=== PATIENT | female | born 2000 | race Caucasian/White ===

== ENCOUNTER 2025-04-12 12:41 | Inpatient (IN) ==
[2025-04-12 14:10] LABS: Protein Creatinine Ratio Urine 0.2 (0-0.2); Total Protein Urine Random 23.0 mg/dl (0-11.9)
[2025-04-12] MEDS: LABETALOL HCL IV 5 MG/ML 20ML IV STA (14:17)
[2025-04-12 14:30] LABS: Hematocrit (blood only) 33.1 % (37.0-47.0); Hemoglobin 11.2 g/dl (12.0-16.0); Immature Granulocytes # (auto) 0.10 K/uL (0.01-0.20); Immature Granulocytes % (auto) 0.8 %; Mean Corpuscular Hemoglobin 30.8 pg (25.0-34.0); Mean Corpuscular Volume 90.9 fL (80.0-100.0); Platelet Count 225 K/uL (130-400); RDW Standard Deviation 44.6 fL (36.4-46.3); Red Blood Count 3.64 M/uL (4.20-5.40); White Blood Count 12.62 K/ul (4.8-10.8)
[2025-04-12] MEDS: LACTATED RINGER'S 1,000 ML IV SCH ×3 (14:30→17:25)
[2025-04-12] MEDS: MAG SULFATE 4GM BOLUS FROM BAG IV ONE (14:32)
[2025-04-12] MEDS: MAGNESIUM SULFATE / WTR 40 GM/1,000 ML BAG IV SCH (14:32)
--- NOTE | 2025-04-12 14:36 | History & Physical Report ---
Date of Service April 12, 2025 Assessment & Plan (1) Chronic hypertension affecting : Plan: Hallie is a 24-year-old G2, P0 101 weeks for gestational age presents with superimposed preeclampsia with severe features due to severe range blood pressures. Labetalol 20 mg ordered for acute antihypertensive treatment. Will start magnesium per protocol. Patient has a prior history of section with plan repeat . Consent forms reviewed and signed and all questions answered. Diagnosis of preeclampsia with severe features discussed and patient has a prior history of preeclampsia with severe features with delivery. All questions answered. Reactive NST noted. Will continue to monitor and treat as indicated. (2) History of pre-eclampsia: (3) Previous delivery affecting , antepartum: (4) Severe pre-eclampsia: Admission and Anticipated Discharge Date Admission Date: April 12, 2025 History of Present Illness Primary Care Provider: NO PCP Hallie is a [id number] P0-1-0-1 currently at 38 weeks 4 days gestational age presents for evaluation of acute hypertension affecting . Was noted to have elevated blood pressures in clinic this morning and was sent for evaluation. Patient was noted to have fairly persistent severe range blood pressures upon admission. Preeclampsia labs currently pending. Patient denying any preeclampsia symptoms. Has a history of preeclampsia affecting her first with delivery at 26 weeks. Prior for preeclampsia with delivery @ 26 weeks - ASA 81mg - Baseline preeclampsia labs Plans for repeat section C/S SCHEDULED FOR 04/13/[address] FLORES Chronic Hypertension *Baby ASA daily start 12-28 wks, continue until delivery *wkly NST's @32wks and twice wkly @36 wks *Serial Growth US @ 24 (doppler only if abnml) *Baseline 24hr urine (additioinal PRN) baseline completed *weekly RIN's @ 32wk(If on Meds) *Deliver [id number] (If on Meds) *Deliver [id number] (Not on Meds) Polyhydramnios *Weekly NSTs if fluid 12 or greater *Weekly AFIs @ Dx *If pocket >16 refer to MFM *Deliver between [id number] Need for Rhogam due to RH Negative Mother *Rhogam given 01/31/2025 - SP Hepatitis B Non Immune *Recommend Hepatitis B Vaccine LSIL on Pap at NOB visit *Recommend Colpo--done 10/2024, pap and hpv pp OB Labs: Blood Type A Negative 10/26/24 Antibody Screen NEGATIVE 01/31/25 Hgb 11.8 g/dl (12.0-16.0) L 03/16/25 Hct 33.0 % (37.0-47.0) L 03/16/25 MCV 90.9 fL (80.0-100.0) 03/16/25 Plt Count 251 K/uL (130-400) 03/16/25 Rubella IgG Antibody Immune (Immune) 10/26/24 Treponema pallidum Ab Negative (Negative) 01/31/25 Hep Bs Antigen Negative (Negative) 10/26/24 Hepatitis C Antibody Negative (Negative) 10/26/24 HIV 1&2 Ab/P24 Ag 4thGn Negative (Negative) 10/26/24 Glucose 1 Hr 50 gm 118 mg/dl (70-130) 01/31/25 Maternal Serum AFP 28.0 ng/mL 11/08/24 OB Optional Labs: Chlamydia trachomatis RNA Not Detected (NotDetected) 10/25/24 Neisseria gonorrhoeae RNA Not Detected (NotDetected) 10/25/24 Alpha Fetoprotein Triple Screen SEE NOTE 11/08/24 Labs Reviewed: neg afp=-[facility] low risk [facility]--[place] Allergies Allergy/AdvReac Type Severity Reaction Status Date / Time No Known Allergies Allergy Verified 04/12/25 13:40 Home Medications Medication Instructions Recorded Confirmed Type PNV no.[id number] 1 tab PO QAM 10/18/24 04/12/25 History [ Gummies] aspirin 81 mg tablet,delayed 81 mg PO QAM 11/16/24 04/12/25 History release (Adult Low Dose Aspirin) ondansetron HCl 4 mg tablet 4 mg PO Q6H PRN nausea and 11/16/24 04/12/25 Rx vomiting #30 tabs Tylenol 1,000 mg PO PRN Pain 04/12/25 History Patient History Medical History Chronic hypertension affecting Preeclampsia hx, with last Varicella vaccination Surgical History S/P section S/P ovarian cystectomy S/P wisdom tooth extraction Family History Mother Ovarian cancer Father Hypertension Denies family history of Breast cancer Colorectal cancer Social History (Updated 10/18/24 @ 14:20 by Romana Fortune) Smoking Status: Never smoker Second Hand Exposure: No; Do You Dip or Chew Tobacco: No; Hx Alcohol Use: No Hx Substance Use: Yes Last Used Substance Other:: Pt reported, used heroin/cocaine/meth 4 yrs ago & marijuana in 2024. Preferred Language: Hebrew Communication Ability: Effective Care Team Assistant Required: No Beliefs That Will Affect Care: None marital status: marital status details: viki Bennett (23) Current Living Situation: Significant Other Current Living Situation Comment: lives with fob, patient's son lives with grandparents current occupational status: unemployed Feels Safe at Home: Yes Safety Concerns: Feels Safe At This Time Assistive Devices: None Physical Exam Genitourinary: OB Exam Monitor Tracing: + external FHT monitor used, + external uterine monitor used, + category I and + normal FHT variability Results & Data Vital Signs (Past 12 Hours) Vital Signs Temp Pulse Resp BP 04/12/25 14:16 82 04/12/25 14:16 206/116 H 04/12/25 13:56 75 04/12/25 13:56 175/98 H 04/12/25 13:45 36.6 C 18 04/12/25 13:25 88 157/109 H 04/12/25 13:14 100 H 169/100 H 04/12/25 13:04 79 166/106 H 04/12/25 12:57 71 165/102 H 04/12/25 12:54 77 173/110 H Coding Level of Care Code None Diagnoses Chronic hypertension affecting O10.919 History of pre-eclampsia Z87.59 Previous delivery affecting , antepartum O34.219 Severe pre-eclampsia in third trimester O14.13 Trimester: third trimester (4) Severe pre-eclampsia Trimester: third trimester Qualified Code(s): O14.13 - Severe pre-eclampsia, third trimester
[2025-04-12 14:49] LABS: Alanine Aminotransferase 14.0 U/L (7-52); Albumin Globulin Ratio 0.9 (0.9-2); Alkaline Phosphatase 108.0 U/L (34-104); Anion Gap 8.0 (3-11); Bilirubin,Total 0.3 mg/dl (0.2-1.0); Blood Urea Nitrogen 13.0 mg/dl (6-23); Calcium 9.9 mg/dl (8.6-10.3); Carbon Dioxide 21.0 mmol/L (21-32); Chloride 106.0 mmol/L (98-107); Creatinine Clr Calc Pharmacy 146.8 ml/min; Globulin 3.5 gm/dl (2.5-4.0); Glucose 86.0 mg/dl (70-99(Fasting)); Potassium 4.0 mmol/L (3.5-5.1); Sodium 135.0 mmol/L (136-145); Total Protein 6.7 gm/dl (6.0-8.3)
[2025-04-12] MEDS: ACETAMINOPHEN 500 MG TAB PO SCH (15:19)
[2025-04-12] MEDS: CITRIC ACID/SODIUM CITRATE 15 ML UDC PO SCH (15:20)
[2025-04-12] MEDS ORDERED: NALOXONE HCL 0.4 MG/1 ML VIAL/CARP IV PRN (16:14)
[2025-04-12] MEDS ORDERED: NALOXONE HCL 0.08 MG in SYRINGE 1.8 ML IV PRN (16:14)
[2025-04-12] MEDS ORDERED: MoRPHine SULFATE 2 MG/ML CARP IV PRN (16:14)
[2025-04-12] MEDS ORDERED: LACTATED RINGER'S 500 ML IV PRN (16:14)
[2025-04-12] MEDS ORDERED: diphenhydrAMINE 50 MG/ML VIAL IV PRN (16:14)
[2025-04-12] MEDS ORDERED: HYDROmorphone INJ 0.5 MG/0.5 ML SYR IV PRN (16:14)
[2025-04-12] MEDS ORDERED: PROMETHAZINE 6.25 MG/50.25 ML BAG IV PRN (16:14)
[2025-04-12] MEDS ORDERED: ONDANSETRON INJ 2 MG/ML 2 ML VIAL IV PRN (16:14)
[2025-04-12] MEDS ORDERED: NALOXONE HCL 1 MG in SODIUM CHLORIDE 0.9% 1,000 ML IV PRN (16:14)
[2025-04-12] MEDS ORDERED: MEPERIDINE HCL 25 MG/ML CARP/VIAL IV PRN (16:14)
[2025-04-12] MEDS ORDERED: DC INTRASPINAL MORPHINE SCH (16:15)
[2025-04-12] MEDS ORDERED: NO NARCOTICS OR SEDATIVES SCH (16:15)
[2025-04-12] MEDS ORDERED: HYDROCORTISONE ACETATE 25 MG SUPP PR PRN (16:44)
[2025-04-12] MEDS ORDERED: SENNA 8.6 MG TAB PO PRN (16:44)
[2025-04-12] MEDS ORDERED: CALCIUM CARBONATE 500 MG CHEWABLE TAB PO PRN (16:44)
[2025-04-12] MEDS ORDERED: MAGNESIUM HYDROXIDE SUSP 30 ML UDC PO PRN (16:44)
[2025-04-12] MEDS ORDERED: BENZOCAINE 20% SPRY 85 APPLN/85 GM CAN EXT PRN (16:44)
[2025-04-12] MEDS: OXYTOCIN 20 UNITS/LR 1,002 ML IV SCH (16:45)
--- NOTE | 2025-04-12 16:49 | Operative Report ---
Post Operative Report Pre & Post Diagnosis Operation Date: 04/12/25 15:30 Pre-Op Diagnosis: 1. Term preg. 2. history of 3. Severe pre-eclampsia Post-Op Diagnosis: Same as above I identified the patient and participated in the time-out.: Yes Procedure Operation Date: 04/12/25 15:30 Actual Procedures p Section in - [facility] @ 16:01pm - Kloby Alvarez MD Surgeon Kolby Alvarez MD Printer Slotter Operator Nursing staff Quantitative Blood Loss (QBL) Per chart Findings Consistent with Post-Op Diagnosis Specimens Placenta Description of Procedure Patient was taken to the operating room after consents were ensured. Upon presentation she was identified. Spinal anesthesia obtained and patient was prepped and draped in the normal sterile fashion. Preprocedure timeout was performed and the case was initiated. A Pfannenstiel incision was made with a knife. This was carried down to underlying fascia with the Bovie and blunt dissection. Fascia was nicked at the midline with a knife and was extended bluntly and with Villavicencio scissors bilaterally. Abdomen was then entered bluntly and placed on stretch to provide adequate room for delivery. was noted to be in cephalic presentation as suspected and a low transverse uterine incision was made with a knife. The uterine cavity was then entered bluntly and placed on stretch to provide adequate room for delivery. The was noted to be in cephalic position and head delivered without difficulty quickly followed by shoulders and body. did not have good tone upon delivery and the cord was clamped and cut and taken to the waiting nursery staff. Cord blood and cord segment obtained and attention turned to deliver the placenta which delivered intact with gentle uterine massage and cord traction. Uterus was exteriorized and several passes made to remove any remaining membranes with a dry lap. Uterus was wrapped in a wet lap and the hysterotomy was reapproximated with 0 Vicryl in continuous running lock stitch. A second imbricating layer was then performed. The posterior cul-de-sac cleaned of clots and debris's. Hysterotomy was also noted to be hemostatic. Uterus returned to maternal abdomen and right left paracolic gutters cleaned of clots and debris's and hysterotomy reinspected. The muscle, fascia and subcutaneous layers were inspected and noted to be hemostatic. Fascia was reapproximated with 0 Vicryl in continuous running stitch. Subcutaneous layer reapproximated in 2 layers with 2-0 plain. Skin reapproximated 3-0 Vicryl in a subcuticular stitch. Dermabond placed on top. Needle sponge in instrument counts correct at the completion of the case. Both mother and stable in the immediate postdelivery timeframe. No complications noted and blood loss per QBL in chart. I attest to the content of the Intraoperative Record and any orders documented therein. Any exceptions are noted below. OB Procedure Charges 67563
[2025-04-12] MEDS: NALBUPHINE HCL INJ 10 MG/ML AMP IV PRN (17:03)
[2025-04-12] MEDS: KETOROLAC 30 MG/ML VIAL IV SCH (17:03)
[2025-04-12] MEDS: MoRPHine SULFATE PF 1 MG/ML 10 ML AMP/VIAL INT SPINAL ONE (17:06)
[2025-04-12] MEDS: SODIUM CHLORIDE 0.9% 1,000 ML IV SCH (17:24)
[2025-04-12] MEDS: DIPHTHER/TETAN/PERTUS Vaccine (Tdap, Adol/Adult) 0.5mL IM ONE (17:24)
[2025-04-12] MEDS: SIMETHICONE 80 MG CHEW PO SCH (17:53)
--- NOTE | 2025-04-12 20:52 | Anesthesiology Progress Note ---
Date of Service April 12, 2025 Anesthesia Post Procedure Vital Signs Vital Signs: Temp Pulse Resp BP Pulse Ox O2 Del Method 04/12/25 20:51 98 04/12/25 20:51 90 04/12/25 20:46 99 04/12/25 20:46 93 H 04/12/25 20:41 98 04/12/25 20:41 106 H 04/12/25 20:36 98 04/12/25 20:36 92 H 04/12/25 20:31 99 04/12/25 20:31 92 H 04/12/25 20:26 98 04/12/25 20:26 96 H 04/12/25 20:25 92 H 04/12/25 20:25 145/86 H 04/12/25 20:21 97 04/12/25 20:21 91 H 04/12/25 20:16 96 04/12/25 20:16 95 H 04/12/25 20:11 96 04/12/25 20:11 92 H 04/12/25 20:06 93 04/12/25 20:06 90 04/12/25 20:01 96 04/12/25 20:01 88 04/12/25 20:00 16 04/12/25 19:56 96 04/12/25 19:56 86 04/12/25 19:55 84 04/12/25 19:55 140/75 04/12/25 19:51 96 04/12/25 19:51 87 04/12/25 19:46 97 04/12/25 19:46 82 04/12/25 19:41 96 04/12/25 19:41 86 04/12/25 19:36 96 04/12/25 19:36 86 04/12/25 19:31 97 04/12/25 19:31 77 04/12/25 19:26 96 04/12/25 19:26 84 04/12/25 19:25 81 04/12/25 19:25 151/80 H 04/12/25 19:21 95 04/12/25 19:21 81 04/12/25 19:16 96 04/12/25 19:16 93 H 04/12/25 19:11 98 04/12/25 19:11 81 04/12/25 19:06 98 04/12/25 19:06 85 04/12/25 19:05 36.8 C 18 04/12/25 19:05 18 04/12/25 19:05 Room Air 04/12/25 19:01 98 04/12/25 19:01 84 04/12/25 18:56 98 04/12/25 18:56 81 04/12/25 18:51 97 04/12/25 18:51 92 H 04/12/25 18:46 98 04/12/25 18:46 80 04/12/25 18:45 75 04/12/25 18:45 157/81 H 04/12/25 18:41 97 04/12/25 18:41 85 04/12/25 18:36 96 04/12/25 18:36 81 04/12/25 18:31 96 04/12/25 18:31 80 04/12/25 18:30 36.8 C 04/12/25 18:30 16 04/12/25 18:30 82 04/12/25 18:30 155/83 H 04/12/25 18:26 82 L 04/12/25 18:26 161 H 04/12/25 18:21 82 L 04/12/25 18:21 117 H 04/12/25 18:16 89 L 04/12/25 18:16 92 H 04/12/25 18:15 87 L 04/12/25 18:15 75 04/12/25 18:15 156/79 H 04/12/25 18:11 94 04/12/25 18:11 76 04/12/25 18:06 94 04/12/25 18:06 80 04/12/25 18:01 98 04/12/25 18:01 69 04/12/25 18:01 157/83 H 04/12/25 17:56 97 04/12/25 17:56 80 04/12/25 17:53 92 04/12/25 17:53 79 04/12/25 17:51 100 04/12/25 17:51 78 04/12/25 17:46 94 04/12/25 17:46 78 04/12/25 17:45 18 04/12/25 17:45 72 04/12/25 17:45 163/79 H 04/12/25 17:42 92 04/12/25 17:42 80 04/12/25 17:41 100 04/12/25 17:41 74 04/12/25 17:36 97 04/12/25 17:36 92 H 04/12/25 17:35 88 04/12/25 17:35 181/97 H 04/12/25 17:31 98 04/12/25 17:31 96 H 04/12/25 17:26 98 04/12/25 17:26 95 H 04/12/25 17:25 83 04/12/25 17:25 177/95 H 04/12/25 17:21 98 04/12/25 17:21 74 04/12/25 17:16 98 04/12/25 17:16 83 04/12/25 17:15 36.8 C 18 04/12/25 17:15 18 04/12/25 17:15 78 04/12/25 17:15 167/84 H 04/12/25 17:11 98 04/12/25 17:11 74 04/12/25 17:06 98 04/12/25 17:06 73 04/12/25 17:05 16 04/12/25 17:05 81 04/12/25 17:05 183/119 H 04/12/25 17:01 98 04/12/25 17:01 66 04/12/25 17:00 92 04/12/25 17:00 77 04/12/25 16:56 97 04/12/25 16:56 63 04/12/25 16:56 161/88 H 04/12/25 16:55 16 04/12/25 16:51 98 04/12/25 16:51 75 04/12/25 16:47 70 04/12/25 16:47 149/83 H 04/12/25 16:46 98 04/12/25 16:46 72 04/12/25 16:45 36.5 C 16 04/12/25 16:40 64 04/12/25 16:40 133/73 04/12/25 15:40 18 04/12/25 15:36 96 H 04/12/25 15:36 161/82 H 04/12/25 15:14 109 H 04/12/25 15:14 148/99 H 04/12/25 14:55 82 04/12/25 14:55 163/94 H 04/12/25 14:45 18 04/12/25 14:35 90 185/99 H 04/12/25 14:35 80 04/12/25 14:35 185/99 H 04/12/25 14:17 82 206/116 H 04/12/25 14:16 82 04/12/25 14:16 206/116 H 04/12/25 13:56 75 04/12/25 13:56 175/98 H 04/12/25 13:45 36.6 C 18 04/12/25 13:25 88 157/109 H 04/12/25 13:14 100 H 169/100 H 04/12/25 13:04 79 166/106 H 04/12/25 13:03 18 04/12/25 13:03 36.8 C 18 04/12/25 12:57 71 165/102 H 04/12/25 12:54 77 173/110 H Pain Intensity Lower Abdomen: Pain Intensity: 6 Transfer of Care Handoff Completed per policy Notes Mental Status: alert / awake / arousable Nausea / Vomiting: adequately controlled Pain: adequately controlled Airway Patency, RR, SpO2: stable & adequate BP & HR: stable & adequate Hydration State: stable & adequate Neuraxial Anesthesia: was administered and sensory block is resolving Anesthetic Complications: no major complications apparent and Pt Satisfied with anesthetic care
[2025-04-12] MEDS: LABETALOL HCL 200 MG TAB PO SCH (21:59)
[2025-04-12] MEDS: DOCUSATE SODIUM 100 MG CAP PO SCH (22:18)
[2025-04-12] MEDS: ACETAMINOPHEN 325 MG TAB PO SCH (22:42)
[2025-04-13] MEDS ORDERED: ACETAMINOPHEN 500 MG TAB PO SCH (06:00)
[2025-04-13] MEDS ORDERED: CITRIC ACID/SODIUM CITRATE 15 ML UDC PO SCH (06:00)
[2025-04-13 06:15] LABS: Hematocrit (blood only) 25.8 % (37.0-47.0); Hemoglobin 8.8 g/dl (12.0-16.0)
--- NOTE | 2025-04-13 07:06 | Obstetrical Progress Note ---
Date of Service <Pasquale Arce MD - Last Filed: 04/13/25 08:24> April 13, 2025 Assessment & Plan <Pasquale Arce MD - Last Filed: 04/13/25 08:24> (1) care and examination: 24yo [id number] day 1 s/p section Feels fine today. Vital signs stable. BPs normal range Continue post- care Continue mag until 24hr shahram Continue SCDs for DVT prophylaxis until can ambulate Encourage bottle feeding Pain controlled with Tylenol, ketorlac Hgb stable <Kolby Alvarez MD - Last Filed: 04/16/25 11:18> (1) care and examination: Subjective <Pasquale Arce MD - Last Filed: 04/13/25 08:24> 24yo post-op day 1 s/p section Ambulation: No due to magnesium tx. SCDs on. Voiding: Christopher in, around 700cc in bag, normal color, no blood Passing Gas:: No Diet Tolerance:: regular diet Lochia:: Small Feeding Type:: bottle feeding Current Pain Level: 0/10 controlled with Tylenol, ketorlac Resting comfortably this AM in NAD. Denies MANRIQUEZ, vision changes CP, SOB, N/V/D, abdominal pain, LE pain/swelling. Physical Exam <Pasquale Arce MD - Last Filed: 04/13/25 08:24> General: patient resting comfortably, NAD, non-toxic in appearance, answers questions appropriately Skin: warm, dry, intact Heart: S1/S2 heard, regular, no m/r/g Lungs: equal air entry bilaterally, no rales/rhonchi/wheezes Abd: Normoactive BS, soft, NT/ND, uterine fundus firm at umbilicus, incision clean, dry, and intact Ext: warm, no clubbing/cyanosis or edema, Salma's neg, SCDs on Neuro: nonfocal, patient AAOx4, speech intact, no facial droop, moving all extremities on command Results & Data <Pasquale Arce MD - Last Filed: 04/13/25 08:24> Vital Signs (Past 12 Hours) Vital Signs Temp Pulse Resp BP Pulse Ox O2 Del Method 04/13/25 07:01 88 98 04/13/25 07:00 93 H 108/62 04/13/25 06:56 80 96 04/13/25 06:55 85 106/58 L 04/13/25 06:51 82 96 04/13/25 06:46 82 96 04/13/25 06:41 84 95 04/13/25 06:36 86 98 04/13/25 06:31 85 96 04/13/25 06:30 16 04/13/25 06:26 82 97 04/13/25 06:25 83 100/57 L 04/13/25 06:21 83 96 04/13/25 06:16 81 97 04/13/25 06:11 81 96 04/13/25 06:06 85 96 04/13/25 06:01 89 96 04/13/25 05:56 93 H 97 04/13/25 05:55 90 109/64 04/13/25 05:51 90 95 04/13/25 05:46 88 96 04/13/25 05:41 87 96 04/13/25 05:36 92 H 97 04/13/25 05:31 93 H 96 04/13/25 05:30 16 04/13/25 05:26 85 95 04/13/25 05:25 84 100/57 L 04/13/25 05:21 86 96 04/13/25 05:16 80 95 04/13/25 05:11 85 96 04/13/25 05:06 85 96 04/13/25 05:01 82 96 04/13/25 04:56 80 96 04/13/25 04:55 77 109/62 04/13/25 04:51 82 96 04/13/25 04:46 90 99 04/13/25 04:41 78 96 04/13/25 04:36 84 96 04/13/25 04:31 86 96 04/13/25 04:26 87 97 04/13/25 04:25 88 111/62 04/13/25 04:21 102 H 97 04/13/25 04:16 99 H 97 04/13/25 04:11 83 96 04/13/25 04:06 81 96 04/13/25 04:01 93 H 98 04/13/25 03:56 84 96 04/13/25 03:55 82 109/56 L 04/13/25 03:51 84 96 04/13/25 03:46 92 H 96 04/13/25 03:41 84 96 04/13/25 03:36 86 96 04/13/25 03:31 82 95 04/13/25 03:26 83 96 04/13/25 03:25 82 115/66 04/13/25 03:21 93 H 99 04/13/25 03:20 16 04/13/25 03:20 36.7 C 16 98 Room Air 04/13/25 03:16 86 96 04/13/25 03:11 91 H 96 04/13/25 03:06 97 H 96 04/13/25 03:01 88 96 04/13/25 02:56 86 96 04/13/25 02:55 87 106/59 L 04/13/25 02:51 81 96 04/13/25 02:46 83 96 04/13/25 02:41 79 96 04/13/25 02:36 80 96 04/13/25 02:31 82 96 04/13/25 02:26 83 96 04/13/25 02:25 80 117/64 04/13/25 02:21 18 04/13/25 02:21 89 97 04/13/25 02:16 87 96 04/13/25 02:11 85 96 04/13/25 02:06 88 96 04/13/25 02:01 85 96 04/13/25 01:56 86 96 04/13/25 01:55 85 107/58 L 04/13/25 01:51 86 97 04/13/25 01:46 81 96 04/13/25 01:41 88 95 04/13/25 01:36 82 96 04/13/25 01:31 82 97 04/13/25 01:26 85 97 04/13/25 01:25 83 115/66 04/13/25 01:21 89 97 04/13/25 01:16 84 97 04/13/25 01:11 88 96 04/13/25 01:06 86 96 04/13/25 01:01 86 96 04/13/25 01:00 18 04/13/25 00:56 87 97 04/13/25 00:55 89 104/56 L 04/13/25 00:51 87 96 04/13/25 00:46 90 97 04/13/25 00:41 86 96 04/13/25 00:36 86 96 04/13/25 00:31 93 H 95 04/13/25 00:26 90 95 04/13/25 00:25 90 110/62 04/13/25 00:21 86 96 04/13/25 00:16 85 96 04/13/25 00:11 89 94 04/13/25 00:06 88 95 04/13/25 00:01 108 H 98 04/13/25 00:00 18 04/12/25 23:56 95 04/12/25 23:56 87 04/12/25 23:55 86 04/12/25 23:55 117/65 04/12/25 23:51 95 04/12/25 23:51 86 04/12/25 23:46 94 04/12/25 23:46 87 04/12/25 23:41 95 04/12/25 23:41 85 04/12/25 23:36 96 04/12/25 23:36 82 04/12/25 23:31 96 04/12/25 23:31 87 04/12/25 23:26 95 04/12/25 23:26 83 04/12/25 23:25 84 04/12/25 23:25 125/74 04/12/25 23:21 96 04/12/25 23:21 83 04/12/25 23:16 96 04/12/25 23:16 83 04/12/25 23:11 98 04/12/25 23:11 90 04/12/25 23:10 36.7 C 18 04/12/25 23:10 18 04/12/25 23:06 98 04/12/25 23:06 83 04/12/25 23:01 98 04/12/25 23:01 87 04/12/25 22:56 99 04/12/25 22:56 87 04/12/25 22:54 85 04/12/25 22:54 152/88 H 04/12/25 22:51 97 04/12/25 22:51 88 04/12/25 22:46 99 04/12/25 22:46 88 04/12/25 22:42 83 04/12/25 22:42 153/90 H 04/12/25 22:41 99 04/12/25 22:41 94 H 04/12/25 22:36 98 04/12/25 22:36 95 H 04/12/25 22:31 97 04/12/25 22:31 97 H 04/12/25 22:26 98 04/12/25 22:26 105 H 04/12/25 22:25 85 04/12/25 22:25 168/86 H 04/12/25 22:21 98 04/12/25 22:21 105 H 04/12/25 22:16 99 04/12/25 22:16 92 H 04/12/25 22:11 97 04/12/25 22:11 89 04/12/25 22:06 98 04/12/25 22:06 91 H 04/12/25 22:01 98 04/12/25 22:01 90 04/12/25 22:00 18 04/12/25 21:56 98 04/12/25 21:56 89 04/12/25 21:55 84 04/12/25 21:55 160/90 H 04/12/25 21:51 98 04/12/25 21:51 87 04/12/25 21:46 97 04/12/25 21:46 93 H 04/12/25 21:41 99 04/12/25 21:41 92 H 04/12/25 21:36 97 04/12/25 21:36 91 H 04/12/25 21:31 98 04/12/25 21:31 92 H 04/12/25 21:26 98 04/12/25 21:26 88 04/12/25 21:25 91 H 04/12/25 21:25 171/90 H 04/12/25 21:21 100 04/12/25 21:21 97 H 04/12/25 21:16 98 04/12/25 21:16 92 H 04/12/25 21:11 98 04/12/25 21:11 86 04/12/25 21:08 18 04/12/25 21:06 99 04/12/25 21:06 92 H 04/12/25 21:01 99 04/12/25 21:01 87 04/12/25 20:56 99 04/12/25 20:56 85 04/12/25 20:54 96 H 04/12/25 20:54 144/88 H 04/12/25 20:51 98 04/12/25 20:51 90 04/12/25 20:46 99 04/12/25 20:46 93 H 04/12/25 20:41 98 04/12/25 20:41 106 H 04/12/25 20:36 98 04/12/25 20:36 92 H 04/12/25 20:31 99 04/12/25 20:31 92 H 04/12/25 20:26 98 04/12/25 20:26 96 H 04/12/25 20:25 92 H 04/12/25 20:25 145/86 H 04/12/25 20:21 97 04/12/25 20:21 91 H 04/12/25 20:16 96 04/12/25 20:16 95 H 04/12/25 20:11 96 04/12/25 20:11 92 H 04/12/25 20:06 93 04/12/25 20:06 90 04/12/25 20:01 96 04/12/25 20:01 88 04/12/25 20:00 16 04/12/25 19:56 96 04/12/25 19:56 86 04/12/25 19:55 84 04/12/25 19:55 140/75 04/12/25 19:51 96 04/12/25 19:51 87 04/12/25 19:46 97 04/12/25 19:46 82 04/12/25 19:41 96 04/12/25 19:41 86 04/12/25 19:36 96 04/12/25 19:36 86 04/12/25 19:31 97 04/12/25 19:31 77 04/12/25 19:26 96 04/12/25 19:26 84 04/12/25 19:25 81 04/12/25 19:25 151/80 H 04/12/25 19:21 95 04/12/25 19:21 81 04/12/25 19:16 96 04/12/25 19:16 93 H 04/12/25 19:11 98 04/12/25 19:11 81 04/12/25 19:06 98 04/12/25 19:06 85 04/12/25 19:05 36.8 C 18 04/12/25 19:05 18 04/12/25 19:05 Room Air Supervising Physician <Kolby Alvarez MD - Last Filed: 04/16/25 11:18> Co-Signing Physician Notes Patient seen with resident and agree with the above findings and plan. Routine post care Resident Activity Tracking <Pasquale Arce MD - Last Filed: 04/13/25 08:24> Resident Involvement: Resident Care Provided Care Provided: OB Delivery
[2025-04-13] MEDS ORDERED: SODIUM CHLORIDE 0.9% 100 ML IV PRN (08:15)
[2025-04-13] MEDS: FERROUS SULFATE 325 MG TAB PO SCH (08:48)
[2025-04-13] MEDS: PRENATAL VITAMIN 1 TAB PO SCH (08:48)
[2025-04-13] MEDS ORDERED: HYDROmorphone INJ 0.5 MG/0.5 ML SYR IV PRN (10:14)
[2025-04-13] MEDS ORDERED: diphenhydrAMINE 50 MG/ML VIAL IV PRN (10:14)
[2025-04-13] MEDS ORDERED: diphenhydrAMINE Capsule 25 MG CAP PO PRN (10:14)
[2025-04-13] MEDS ORDERED: PROMETHAZINE 12.5 MG/50.5 ML BAG IV PRN (10:14)
[2025-04-13] MEDS ORDERED: ONDANSETRON INJ 2 MG/ML 2 ML VIAL IV PRN (10:14)
[2025-04-13] MEDS ORDERED: KETOROLAC 30 MG/ML VIAL IV PRN (16:44)
[2025-04-13] MEDS: IBUPROFEN 600 MG TAB PO SCH (16:52)
[2025-04-13 23:35] LABS: Amphetamines+Metham, Urine Neg (Neg); MDMA (Ecstacy), Urine Neg (Neg); Marijuana, Urine Neg (Neg)
[2025-04-14 04:35] VITALS: O2SAT 99
--- NOTE | 2025-04-14 07:43 | Obstetrical Progress Note ---
Date of Service <Pasquale Arce MD - Last Filed: 04/14/25 07:49> April 14, 2025 Assessment & Plan <Pasquale Arce MD - Last Filed: 04/14/25 07:49> (1) care and examination: 24 yo post-op day 2 s/p section Fells well today Continue post- care Encourage ambulation and bottle feeding Pain controlled with Ibuprofen, Tylenol Vitals and Hgb stable Advise Hep B vaccine and Rhogam (A- mother and A+ baby) Discharge home today, follow up with OB provider in 6 weeks. D/c instructions discussed <Therese Webster DO - Last Filed: 04/14/25 08:23> (1) care and examination: Subjective <Pasquale Arce MD - Last Filed: 04/14/25 07:49> 24yo post-op day 2 s/p section Ambulation: Ambulating normally Voiding: No voiding problems Passing Gas:: Yes Diet Tolerance:: regular diet Lochia:: Small Feeding Type:: bottle feeding Current Pain Level: 3/10 controlled with Tylenol and Ibuprofen Resting comfortably this AM in NAD. Denies MANRIQUEZ, CP, SOB, N/V/D, LE pain/swelling. Physical Exam <Pasquale Arce MD - Last Filed: 04/14/25 07:49> General: patient resting comfortably, NAD, non-toxic in appearance, answers questions appropriately Skin: warm, dry, intact Heart: S1/S2 heard, regular, no m/r/g Lungs: equal air entry bilaterally, no rales/rhonchi/wheezes Abd: Normoactive BS, soft, NT/ND, uterine fundus firm at umbilicus, incision clean, dry, and intact Ext: warm, no clubbing/cyanosis or edema, Salma's neg Neuro: nonfocal, patient AAOx4, speech intact, no facial droop, moving all extremities on command Results & Data <Pasquale Arce MD - Last Filed: 04/14/25 07:49> Vital Signs (Past 12 Hours) Vital Signs Temp Pulse Resp BP Pulse Ox O2 Del Method 04/14/25 04:33 36.6 C 84 18 138/90 99 Room Air 04/13/25 23:00 36.8 C 89 18 135/89 97 Room Air 04/13/25 20:50 36.6 C 89 18 143/95 H 98 Room Air Supervising Physician <Therese Webster DO - Last Filed: 04/14/25 08:23> Co-Signing Physician Notes Resident Physician Supervision Note: I interviewed and examined the patient. Discussed with Dr. Arce and agree with findings and plan as documented in the note. Any exceptions or clarifications are listed here: POD#2 doing well. Plan for DC home. Documented By: Therese Webster DO Resident Activity Tracking <Pasquale Arce MD - Last Filed: 04/14/25 07:49> Resident Involvement: Resident Care Provided Care Provided: OB Delivery
--- NOTE | 2025-04-14 10:02 | Communication Note ---
Date of Service: April 14, 2025 Rx Oxycodone #10 tabs to [facility], ALEJANDRA checked. Also sent labetalol 200mg BID. Recheck BP office this week.
[2025-04-14 12:20] VITALS: RESP 16; TEMP 98.8
[2025-04-14 14:00] VITALS: BP 138/90; PULSE 84
[2025-04-14] MEDS ORDERED: IBUPROFEN 600 MG TAB PO PRN (16:44)
[2025-04-14] MEDS ORDERED: ACETAMINOPHEN 325 MG TAB PO PRN (22:44)
--- NOTE | 2025-04-16 16:15 | Discharge Summary ---
Date of Service April 16, 2025 Admission HPI Per Admitting Provider Hallie is a [id number] P0-1-0-1 currently at 38 weeks 4 days gestational age presents for evaluation of acute hypertension affecting . Was noted to have elevated blood pressures in clinic this morning and was sent for evaluation. Patient was noted to have fairly persistent severe range blood pressures upon admission. Preeclampsia labs currently pending. Patient denying any preeclampsia symptoms. Has a history of preeclampsia affecting her first with delivery at 26 weeks. Prior for preeclampsia with delivery @ 26 weeks - ASA 81mg - Baseline preeclampsia labs Plans for repeat section C/S SCHEDULED FOR 04/13/[address] FLORES Chronic Hypertension *Baby ASA daily start 12-28 wks, continue until delivery *wkly NST's @32wks and twice wkly @36 wks *Serial Growth US @ 24 (doppler only if abnml) *Baseline 24hr urine (additioinal PRN) baseline completed *weekly RIN's @ 32wk(If on Meds) *Deliver [id number] (If on Meds) *Deliver [id number] (Not on Meds) Polyhydramnios *Weekly NSTs if fluid 12 or greater *Weekly AFIs @ Dx *If pocket >16 refer to MFM *Deliver between [id number] Need for Rhogam due to RH Negative Mother *Rhogam given 01/31/2025 - SP Hepatitis B Non Immune *Recommend Hepatitis B Vaccine LSIL on Pap at NOB visit *Recommend Colpo--done 10/2024, pap and hpv pp OB Labs: Blood Type A Negative 10/26/24 Antibody Screen NEGATIVE 01/31/25 Hgb 11.8 g/dl (12.0-16.0) L 03/16/25 Hct 33.0 % (37.0-47.0) L 03/16/25 MCV 90.9 fL (80.0-100.0) 03/16/25 Plt Count 251 K/uL (130-400) 03/16/25 Rubella IgG Antibody Immune (Immune) 10/26/24 Treponema pallidum Ab Negative (Negative) 01/31/25 Hep Bs Antigen Negative (Negative) 10/26/24 Hepatitis C Antibody Negative (Negative) 10/26/24 HIV 1&2 Ab/P24 Ag 4thGn Negative (Negative) 10/26/24 Glucose 1 Hr 50 gm 118 mg/dl (70-130) 01/31/25 Maternal Serum AFP 28.0 ng/mL 11/08/24 OB Optional Labs: Chlamydia trachomatis RNA Not Detected (NotDetected) 10/25/24 Neisseria gonorrhoeae RNA Not Detected (NotDetected) 10/25/24 Alpha Fetoprotein Triple Screen SEE NOTE 11/08/24 Labs Reviewed: neg afp=-[facility] low risk panorama--[facility] Discharge Data Consultations 04/12/25 13:59 Consult Anesthesiology Stat Procedures Performed Operation Date: 04/12/25 15:30 Actual Procedures p Section in LD - [facility] @ 16:01pm - Kolby Alvarez MD Hospital Course (1) Severe pre-eclampsia: Patient presents for evaluation of elevated blood pressures and was diagnosed severe preeclampsia. Was started on magnesium per protocol and was given acute antihypertensive medications. Underwent a repeat section which performed without complication. Completed 24-hour post magnesium course. Was started on labetalol 200 mg twice daily which maintain blood pressures within a normal range to rare mild range. Was discharged home on day 2 in stable condition. Provided both written and verbal discharge instructions at time of discharge (2) Chronic hypertension affecting : (3) Previous delivery affecting , antepartum: Coding Level of Care Code None Diagnoses Severe pre-eclampsia in third trimester O14.13 Trimester: third trimester Chronic hypertension affecting O10.919 Previous delivery affecting , antepartum O34.219
== END 2025-04-14 15:45 | disposition home or self-care (01) | DRG 807 ==
LOC: OPB 12:41 → 4S1 12:43 → 4E2 04-13 16:45